=== PATIENT | male | born 1995 | race Two or more races ===

== ENCOUNTER 2018-04-17 06:46 | Emergency (ER) | payer OTHER ==
[~2018-04-17] VITALS: Ht 177.8 cm; Wt 81.8 kg
[2018-04-17] MEDS ORDERED: VITA500C24 PO (07:31)
[2018-04-17] MEDS ORDERED: THERTAB2 PO (07:31)
[2018-04-17 08:36] LABS: INFLUENZA A AMPLIFICATION NEGATIVE (NEGATIVE); INFLUENZA B AMPLIFICATION NEGATIVE (NEGATIVE)
[2018-04-17] MEDS ORDERED: IBUP-1022 PO (09:27)
[2018-04-17] MEDS ORDERED: BENZ200C70 PO (09:27)
[2018-04-17] MEDS ORDERED: ONDA4TAB6 PO (09:33)
[2018-04-17 09:35] VITALS: BP 128/82
== END 2018-04-17 10:03 | disposition home or self-care (01) ==
LOC: M ED 06:46
DX: J02.9 Acute pharyngitis, unspecified (principal); J06.9 Acute upper respiratory infection, unspecified; Z79.899 Other long term (current) drug therapy